=== PATIENT | male | born 1960 | race African-American/Black ===

== ENCOUNTER 2017-12-12 00:29 | Emergency (ER) | payer SELFPAY ==
[~2017-12-12] VITALS: Ht 175.3 cm; Wt 88.5 kg
[2017-12-12 00:40] VITALS: BP 230/158
[2017-12-12] MEDS ORDERED: Solu-MEDROL 125mg Inj IVP ONE (00:45)
[2017-12-12 00:47] LABS: BASOPHILS % (AUTO) 2.8 % (0.0-2.0); EOSINOPHILS % (AUTO) 10.5 % (0.0-3.0); HEMATOCRIT 47.1 % (42.0-52.0); HEMOGLOBIN 15.2 G/DL (14.2-18.0); LYMPHOCYTES % (AUTO) 16.7 % (20.0-45.0); MEAN CORPUSCULAR VOLUME 92 FL (80-99); MONOCYTES % (AUTO) 10.4 % (1.0-10.0); NEUTROPHILS % (AUTO) 59.5 % (45.0-75.0); PLATELET COUNT 251 K/UL (150-450); RED BLOOD COUNT 5.12 M/UL (4.70-6.10); RED CELL DISTRIBUTION WIDTH 12.4 % (11.6-14.8); WHITE BLOOD COUNT 8.8 K/UL (4.8-10.8)
[2017-12-12] MEDS: Albuterol ud Inhalation HHN SCH ×6 (00:50→02:00)
[2017-12-12 00:55] LABS: ANION GAP 6 mmol/L (5-15); BLOOD UREA NITROGEN 12 mg/dL (7-18); CALCIUM 9.2 MG/DL (8.5-10.1); CARBON DIOXIDE 29 MMOL/L (21-32); CHLORIDE 106 MMOL/L (98-107); CREATININE 1.3 MG/DL (0.55-1.30); POTASSIUM 5.2 MMOL/L (3.5-5.1); SODIUM 141 MMOL/L (136-145)
[2017-12-12 01:06] LABS: ALANINE AMINOTRANSFERASE 30 U/L (12-78); ALBUMIN 3.8 G/DL (3.4-5.0); ALBUMIN/GLOBULIN RATIO 0.9 (1.0-2.7); ALKALINE PHOSPHATASE 111 U/L (46-116); ASPARTATE AMINO TRANSFERASE 41 U/L (15-37); BILIRUBIN,TOTAL 0.6 MG/DL (0.2-1.0)
[2017-12-12 01:11] VITALS: BP 143/82
--- NOTE | 2017-12-12 01:13 | Diagnostic Imaging Report ---
EXAM: XR Chest, 1 View CLINICAL HISTORY: CP TECHNIQUE: Frontal view of the chest. COMPARISON: No relevant prior studies available. FINDINGS: Lungs: Unremarkable. No consolidation. Pleural space: Unremarkable. No pneumothorax. Heart: Unremarkable. No cardiomegaly. Mediastinum: Unremarkable. Bones/joints: Unremarkable. Vasculature: There is calcification of the aortic arch. IMPRESSION: No radiographic evidence of acute cardiopulmonary disease.
[2017-12-12] MEDS ORDERED: PREDNISONE20 MG ORAL (01:46)
[2017-12-12] MEDS ORDERED: ALBUTEROL SULF8.5 GM INH (01:46)
--- NOTE | 2017-12-12 01:46 | Emergency Room Report ---
History of Present Illness General Chief Complaint: Dyspnea/Respdistress Source: Patient Present Illness [facility] This patient c/o sob tonight. He says he has used his inhaler. Last prednisone "a long time ago" - can't recall when. No history intubation. No fever. + nonprod cough. No leg pain/swelling. No chest pain. No trauma, no fever, no nausea, no vomiting, no diarrhea, no abdominal pain, no syncope, LOC, dizziness , lightheadedness, headache. Allergies: Coded Allergies: PENICILLINS (Verified Allergy, Unknown, 12/12/17) Nursing Documentation-H Hx COPD: Yes Review of Systems Constitutional: Reports: no symptoms Eye: Reports: no symptoms ENT: Reports: no symptoms Respiratory: Reports: see HPI, shortness of breath, wheezing, REAL Cardiovascular: Reports: no symptoms Gastrointestinal: Reports: no symptoms Genitourinary: Reports: no symptoms Musculoskeletal: Reports: no symptoms Skin: Reports: no symptoms Psychiatric: Reports: no symptoms Neurological: Reports: no symptoms Endocrine: Reports: no symptoms Hematologic/Lymphatic: Reports: no symptoms Allergic: Reports: no symptoms All Other Systems: negative except mentioned in HPI Physical Exam Vital Signs Date Time Temp Pulse Resp B/P (MAP) Pulse Ox O2 Delivery O2 Flow Rate FiO2 12/12/17 00:31 97.4 130 24 220/110 94 Room Air 97.3 12/12/17 00:40 2.0 12/12/17 00:45 32 Sp02 EP Interpretation: reviewed, normal General Appearance: normal inspection, alert, GCS 15, non-toxic, moderate distress Head: normocephalic, atraumatic Eyes: bilateral eye normal inspection, bilateral eye PERRL, bilateral eye EOMI ENT: normal ENT inspection, hearing grossly normal, normal pharynx, no angioedema, normal voice, moist mucus membranes Neck: normal inspection, full range of motion, supple, no meningismus, no bony tend Respiratory: respiratory distress, accessory muscle use, wheezing, expiration, inspiration Cardiovascular #1: no edema, tachycardia Gastrointestinal: normal inspection, normal bowel sounds, non tender, soft, no mass, non-distended Musculoskeletal: gait/station normal, normal range of motion Neurologic: normal inspection, alert, oriented x3, responsive, motor strength/ tone normal Psychiatric: normal inspection, judgement/insight normal, memory normal Suicide Risk Assessment: Suicidal Ideation: No Had intent to initiate attempt: No Pt's plan for suicide attempt: No Has means to complete attempt: No Skin: normal inspection, normal color, no rash, warm/dry Medical Decision Making Medical: COPD Reaction to Intervention: Improved Diagnostic Impression: Primary Impression: COPD exacerbation ER Course This patient was in moderate respiratory distress on presentation. Tachycardic, tachypneic, pulse ox normal 98%. Diffuse insp and exp wheezing. + accessory m use. He received IV Solu-medrol and Albuterol x three. Wheezing still present but lessened and much improved air exchange. No accessory m use, much less tachypneic, less tachycardic. I think patient should be admitted but pt. is currently refusing. It seems like he will leave AMA. EKG Diagnostic Results EKG Time: 00:02 Rate: tachycardiac Other Impression sinus tachy, LAD, normal intervals, no acute ischemia Rhythm Strip Diag. Results Rhythm Strip Time: 01:43 EP Interpretation: yes Rate: 111 tachy Last Vital Signs Date Time Temp Pulse Resp B/P (MAP) Pulse Ox O2 Delivery O2 Flow Rate FiO2 12/12/17 01:12 112 24 98 Nasal Cannula 3.0 32 12/12/17 01:11 97.3 143/82 97.3 Status: improved Disposition: AGAINST MEDICAL ADVICE Scripts Albuterol Sulfate* (ALBUTEROL SULFATE MDI*) 8.5 Gm Hfa.aer.ad 2 PUFF INH Q4H PRN for cough/wheezing, #1 EA 0 Refills Prov: Sukhjinder Naik M.D. 12/12/17 Prednisone* (PREDNISONE*) 20 Mg Tablet 40 MG ORAL DAILY, #5 TAB Prov: Sukhjinder Naik M.D. 12/12/17 Referrals: NOT CHOSEN IPA/,REFERRING (PCP) Patient Instructions: Chronic Obstructive Pulmonary Disease Exacerbation Sukhjinder Naik M.D. Dec 12, 2017 01:46
[2017-12-12 03:35] VITALS: BP 108/86
[2017-12-12 05:08] VITALS: BP 152/79
[2017-12-12 05:26] VITALS: BP 152/79
--- NOTE | 2017-12-17 00:44 | Cardiology Report ---
APPROVED REPORT EKG Measurement Heart [id number] IN [id number] Sinus tachycardia Left axis deviation Abnormal ECG
== END 2017-12-12 05:29 | disposition left against medical advice (07) ==
LOC: EMR 01:07
DX: J44.9 Chronic obstructive pulmonary disease, unspecified (principal)
CPT/HCPCS: 36415; 71045; 80053; 83880; 84484; 85025; 85610; 93005; 94640; 94664; 96374; 99284; J2930